=== PATIENT | female | born 1965 | race Caucasian/White ===

== ENCOUNTER 2019-09-14 14:35 | Emergency (ER) | payer MEDICAID, OTHER, SELFPAY ==
[~2019-09-14] VITALS: Ht 162.6 cm; Wt 70.3 kg
[2019-09-14] MEDS ORDERED: ONDANSETRON 2MG/ML, 2ML ONE ×2 (14:52→16:20)
[2019-09-14] MEDS ORDERED: HYDROmorphone 1 MG/ML, 1ML INJ ONE ×2 (14:52→15:38)
[2019-09-14] MEDS ORDERED: HYDROmorphone 1 MG/ML, 1ML INJ IV ONE ×2 (15:00→16:00)
[2019-09-14] MEDS ORDERED: ONDANSETRON 2MG/ML, 2ML IVPush ONE ×2 (15:00→17:00)
--- NOTE | 2019-09-14 15:02 | NUR ---
CAME FROM [facility] WITH DX OF LEFT SHOULDER FX AND DISLOCATION. PT STATES SHE WAS STEPPING OVER BABY GAIT AND TRIPPED, FALLING SHOULDER FIRST INTO TOILET. POSITIVE DISLOATION WITH NUMBNESS LEFT HAND. MEDICATED NOTED ON MAR FOR PAIN
--- NOTE | 2019-09-14 15:48 | NUR ---
XRAY COMPLETED. MD SPEAKING WITH PT ABOUT REDUCTION OF SHOULDER WITH PROCEDURAL SEDATION.
--- NOTE | 2019-09-14 16:05 | NUR ---
CONSENT OBTAINED FOR PROCEDURAL SEDATION AND REDUCTION OF LEFT SHOULDER.
[2019-09-14] MEDS ORDERED: PROPOFOL 10 MG/ML, 20ML ONE (16:14)
--- NOTE | 2019-09-14 16:22 | NUR ---
SEE PROCEDURAL SEDATION FLOW SHEET FOR NOTES.
[2019-09-14] MEDS ORDERED: PROPOFOL 10 MG/ML, 20ML IVPush ONE (16:30)
--- NOTE | 2019-09-14 17:15 | NUR ---
PT VISITING WITH , NO DISTRESS.
[2019-09-14 18:20] VITALS: BP 122/78
--- NOTE | 2019-09-14 18:21 | NUR ---
D/C PAPERS GIVEN AND TO REGISTRATION WINDOW VIA W/C
== END 2019-09-14 18:23 | disposition home or self-care (01) ==
LOC: ED 17:19
DX: S43.015A Anterior dislocation of left humerus, initial encounter (principal); S42.292A Other displaced fracture of upper end of left humerus, initial encounter for closed fracture; W19.XXXA Unspecified fall, initial encounter; Y93.89 Activity, other specified; Y92.098 Other place in other non-institutional residence as the place of occurrence of the external cause; Y99.8 Other external cause status
CPT/HCPCS: 23650; 73020; 73030; 96374; 96375; 96376; 99285; J1170; J2405